=== PATIENT | female | born 1955 | race Caucasian/White ===

== ENCOUNTER 2017-01-09 12:47 | Emergency (ER) | payer OTHER, BC ==
[~2017-01-09] VITALS: Ht 160 cm; Wt 61.5 kg
[~2017-01-09 12:47] MED LIST: AMANTADINE100 MG PO; BACLOFEN20 MG PO; BENICAR40 MG PO; BOTOX100 UNITS IJ; CALTRATE PLUS1 EACH PO; CARDIZEM CD120 MG PO; CELEXA40 MG PO; CENTRUM SILVER1 EAC3 PO; CITALOPRAM HBR40 MG PO; CLEOCIN150 MG PO; COLACE100 MG PO; DETROL LA4 MG PO; DOCUSATE SODIU100 MG PO; ELIQUIS5 MG PO; FLONASE16 G1 BOTH NARES; FOLIC ACID1 MG PO; LATANOPROST2.5 ML BOTH EYES; LEVOCETIRIZINE D5 MG PO; METHOTREXATE2.5 MG PO; MIRAPEX0.5 MG PO; MOTRIN600 MG PO; PLEGRIDY125 MCG/0. SC; POLYETHYLENE GL17 GM PO; RECLAST5 MG/100 M IV; SENNA PLUS TAB1 EACH PO; SYNTHROID50 MCG PO; TECFIDERA240 MG PO; TIROSINT13 MCG PO; Vancocin Oral Solution PO; [UNRECOGNIZED DRUG - REMARK]
[2017-01-09 13:43] LABS: EOSINOPHIL (%) 0 % (0-5); HEMATOCRIT 33.6 % (36.0-46.0); IMMATURE GRANULOCYTE (%) 0.1 % (0.0-0.7); IMMATURE GRANULOCYTE COUNT 0.1 K/uL; LYMPHOCYTE COUNT 0.8 K/uL (1.0-2.8); MCH 30.2 PG (29.0-34.0); MCHC 32.1 G/DL (30.0-36.0); MCV 93.9 FL (83-99); MEAN PLAT.VOLUME 10.7 uM^3 (9.5-12.4); MONOCYTE (%) 7.2 % (3-12); MONOCYTE COUNT 0.8 K/uL (0-0.8); NEUTROPHIL COUNT 9.1 K/uL (1.8-6.4); PLATELET COUNT 164 K/uL (156-360); RBC DIS.WIDTH-CV 14.2 % (11.8-14.6); RBC DIS.WIDTH-SD 46.5 % (39-53); RED BLOOD COUNT 3.58 M/uL (3.80-5.20); WHITE BLOOD COUNT 10.7 K/uL (4.1-10.2)
[2017-01-09 13:52] LABS: CHLORIDE 107 mEq/L (99-109); POTASSIUM 3.9 mEq/L (3.7-5.4); SODIUM 140 mEq/L (136-147)
[2017-01-09 13:54] LABS: GLUCOSE 135 mg/dL (70-99)
[2017-01-09 13:55] LABS: ANION GAP 9 MEQ/L (2-14)
[2017-01-09 13:58] LABS: GFR ESTIMATE (CALCULATED) > 59 mL/min/
[2017-01-09 13:59] LABS: UREA NITROGEN (BUN) 21 mg/dL (9-23)
[2017-01-09 17:10] LABS: BILIRUBIN NEGATIVE; BLOOD NEGATIVE; COLOR YELLOW ((YELLOW)); GLUCOSE (STRIP) NEGATIVE; KETONES NEGATIVE; LEUKOCYTES NEGATIVE; NITRITE NEGATIVE; PROTEIN (STRIP) NEGATIVE; SPECIFIC GRAVITY 1.017 (1.000-1.030); UROBILINOGEN 0.2 MG/DL (0.2-1.0)
[2017-01-09 17:12] LABS: ADD MIUA? NO
[2017-01-09] MEDS ORDERED: KEFLEX500 MG PO (17:49)
[2017-01-09 18:07] VITALS: BP 127/52
== END 2017-01-09 18:11 | disposition home or self-care (01) ==
LOC: EME 12:47 → RME 12:47
PROVIDERS: Physician Assistant
DX: R50.9 Fever, unspecified (principal); L03.211 Cellulitis of face; I10 Essential (primary) hypertension; G35 Multiple sclerosis; E07.9 Disorder of thyroid, unspecified
CPT/HCPCS: 71010; 80048; 81003; 85025; 87040

== ENCOUNTER 2017-01-11 08:47 | Inpatient (IN) | payer OTHER, BC ==
[~2017-01-11] VITALS: Ht 160 cm; Wt 51.8 kg
[~2017-01-11 08:47] MED LIST changes: +KEFLEX500 MG PO
[2017-01-11 09:38] LABS: EOSINOPHIL (%) 0 % (0-5); HEMATOCRIT 35.4 % (36.0-46.0); IMMATURE GRANULOCYTE (%) 0.3 % (0.0-0.7); IMMATURE GRANULOCYTE COUNT 0.4 K/uL; LYMPHOCYTE COUNT 0.6 K/uL (1.0-2.8); MCH 30.1 PG (29.0-34.0); MCHC 32.2 G/DL (30.0-36.0); MCV 93.4 FL (83-99); MEAN PLAT.VOLUME 10.8 uM^3 (9.5-12.4); MONOCYTE (%) 5.7 % (3-12); MONOCYTE COUNT 0.9 K/uL (0-0.8); NEUTROPHIL (%) 89.9 % (45-76); NEUTROPHIL COUNT 13.7 K/uL (1.8-6.4); PLATELET COUNT 180 K/uL (156-360); RBC DIS.WIDTH-SD 45.7 % (39-53); RED BLOOD COUNT 3.79 M/uL (3.80-5.20); WHITE BLOOD COUNT 15.2 K/uL (4.1-10.2)
[2017-01-11 09:46] LABS: CHLORIDE 102 mEq/L (99-109); POTASSIUM 3.9 mEq/L (3.7-5.4); SODIUM 137 mEq/L (136-147)
[2017-01-11 09:48] LABS: GLUCOSE 119 mg/dL (70-99)
[2017-01-11 09:49] LABS: ANION GAP 12 MEQ/L (2-14)
[2017-01-11 09:52] LABS: GFR ESTIMATE (CALCULATED) > 59 mL/min/
[2017-01-11 09:53] LABS: UREA NITROGEN (BUN) 14 mg/dL (9-23)
[2017-01-11 12:41] LABS: ADD MIUA? YES; BILIRUBIN NEGATIVE; BLOOD NEGATIVE; COLOR YELLOW ((YELLOW)); GLUCOSE (STRIP) NEGATIVE; KETONES 20; LEUKOCYTES NEGATIVE; NITRITE NEGATIVE; PROTEIN (STRIP) 100; SPECIFIC GRAVITY 1.017 (1.000-1.030); UROBILINOGEN 0.2 MG/DL (0.2-1.0)
[2017-01-11 12:47] LABS: BACTERIA NONE SEEN /HPF; EPITHELIAL CELLS RARE /HPF; MUCUS NONE SEEN /LPF; RED BLOOD CELLS NONE SEEN /HPF (0-5); UCUL ADDED? NO; WHITE BLOOD CELLS 0-5 /HPF (0-5)
[2017-01-11] MEDS ORDERED: PLEGRIDY P125 MCG/0. SC (14:57)
[2017-01-11] MEDS ORDERED: BENICAR40 MG PO (14:58)
[2017-01-11] MEDS ORDERED: LO-DOSE ASPIRIN81 M2 PO (14:58)
[2017-01-11] MEDS ORDERED: TOLTERODINE TART4 MG PO (14:59)
[2017-01-11] MEDS ORDERED: BACLOFEN20 MG PO (15:00)
[2017-01-11] MEDS ORDERED: LEVO-T50 MCG PO (15:00)
[2017-01-11] MEDS ORDERED: CELEXA40 MG PO (15:01)
[2017-01-11] MEDS ORDERED: MIRAPEX0.5 MG PO (15:02)
[2017-01-11] MEDS ORDERED: CALTRATE PLUS1 EACH PO (15:03)
[2017-01-11] MEDS ORDERED: RECLAST5 MG/100 M IV (15:05)
[2017-01-11] MEDS ORDERED: CENTRUM SILVER1 EAC3 PO (15:05)
[2017-01-11 20:53] VITALS: BP 159/74
[2017-01-12] VITALS (7 sets, daily range): BP systolic 112–168; BP diastolic 60–84
[2017-01-13 07:27] LABS: ALKALINE PHOSPHATASE 58 IU/L (3-129); ANION GAP 11 MEQ/L (2-14); CHLORIDE 106 MEQ/L (99-109); GFR ESTIMATE (CALCULATED) > 59 mL/min/; GLUCOSE 102 mg/dL (70-99); POTASSIUM 3.2 MEQ/L (3.7-5.4); SAMPLE HEMOLYSIS CHECK 0; SAMPLE ICTERIC CHECK 0; SAMPLE LIPEMIA CHECK 0; SODIUM 139 MEQ/L (136-147); TOTAL BILIRUBIN 0.4 MG/DL (0.0-1.0); UREA NITROGEN (BUN) 8 mg/dL (9-23)
[2017-01-13 08:21] LABS: EOSINOPHIL (%) 0.1 % (0-5); IMMATURE GRANULOCYTE (%) 0.2 % (0.0-0.7); IMMATURE GRANULOCYTE COUNT 0.2 K/uL; LYMPHOCYTE COUNT 1.3 K/uL (1.0-2.8); MCH 29.6 PG (29.0-34.0); MCHC 31.9 G/DL (30.0-36.0); MCV 92.8 FL (83-99); MEAN PLAT.VOLUME 11.3 uM^3 (9.5-12.4); MONOCYTE (%) 9.5 % (3-12); MONOCYTE COUNT 0.9 K/uL (0-0.8); NEUTROPHIL (%) 76.2 % (45-76); NEUTROPHIL COUNT 7.4 K/uL (1.8-6.4); PLATELET COUNT 181 K/uL (156-360); RBC DIS.WIDTH-CV 14.1 % (11.8-14.6); RBC DIS.WIDTH-SD 46.4 % (39-53); RED BLOOD COUNT 3.34 M/uL (3.80-5.20)
[2017-01-13 08:24] VITALS: BP 145/70
[2017-01-13 08:25] LABS: WHITE BLOOD COUNT 9.7 K/uL (4.1-10.2)
[2017-01-13 11:02] LABS: MAGNESIUM 1.6 mg/dl (1.3-2.7)
[2017-01-13 16:25] VITALS: BP 150/68
[2017-01-13 23:05] VITALS: BP 138/72
[2017-01-14 07:21] LABS: ALKALINE PHOSPHATASE 51 IU/L (3-129); ANION GAP 10 MEQ/L (2-14); CHLORIDE 106 MEQ/L (99-109); GFR ESTIMATE (CALCULATED) > 59 mL/min/; GLUCOSE 100 mg/dL (70-99); POTASSIUM 3.3 MEQ/L (3.7-5.4); SAMPLE HEMOLYSIS CHECK 0; SAMPLE ICTERIC CHECK 0; SAMPLE LIPEMIA CHECK 0; SODIUM 138 MEQ/L (136-147); UREA NITROGEN (BUN) 7 mg/dL (9-23)
[2017-01-14 07:23] LABS: TOTAL BILIRUBIN 0.3 MG/DL (0.0-1.0)
[2017-01-14 07:39] LABS: EOSINOPHIL (%) 1.1 % (0-5); EOSINOPHIL COUNT 0.1 K/uL (0-0.3); HEMATOCRIT 29.1 % (36.0-46.0); LYMPHOCYTE COUNT 1.2 K/uL (1.0-2.8); MCH 29.8 PG (29.0-34.0); MCHC 32.6 G/DL (30.0-36.0); MCV 91.2 FL (83-99); MEAN PLAT.VOLUME 10.1 uM^3 (9.5-12.4); MONOCYTE (%) 10.7 % (3-12); MONOCYTE COUNT 0.7 K/uL (0-0.8); NEUTROPHIL (%) 69.6 % (45-76); NEUTROPHIL COUNT 4.5 K/uL (1.8-6.4); PLATELET COUNT 180 K/uL (156-360); RBC DIS.WIDTH-SD 47.2 % (39-53); RED BLOOD COUNT 3.19 M/uL (3.80-5.20)
[2017-01-14 07:41] LABS: WHITE BLOOD COUNT 6.4 K/uL (4.1-10.2)
[2017-01-14 08:15] VITALS: BP 144/82
[2017-01-14 16:22] VITALS: BP 132/70
[2017-01-14 23:57] VITALS: BP 140/58
[2017-01-15 07:31] LABS: GFR ESTIMATE (CALCULATED) > 59 mL/min/
[2017-01-15 07:45] VITALS: BP 164/74
[2017-01-15 11:11] LABS: ANION GAP 11 MEQ/L (2-14); CHLORIDE 105 MEQ/L (99-109); GLUCOSE 93 mg/dL (70-99); SODIUM 139 MEQ/L (136-147); UREA NITROGEN (BUN) 8 mg/dL (9-23)
[2017-01-15 11:12] LABS: POTASSIUM 4.3 MEQ/L (3.7-5.4)
[2017-01-15 16:06] LABS: C DIFF TOXIN NEGATIVE (NEGATIVE)
[2017-01-15 16:08] LABS: PROBE CHECK PASS; SPECIMEN PROCESSING CONTROL PASS
[2017-01-15 17:06] VITALS: BP 173/82
[2017-01-16 00:22] VITALS: BP 160/91
[2017-01-16 07:33] VITALS: BP 167/97
[2017-01-16 07:44] LABS: BASOPHIL COUNT 0.1 K/uL (0-0.1); EOSINOPHIL (%) 0.8 % (0-5); EOSINOPHIL COUNT 0.1 K/uL (0-0.3); HEMATOCRIT 34.4 % (36.0-46.0); IMMATURE GRANULOCYTE (%) 0.4 % (0.0-0.7); LYMPHOCYTE COUNT 1.3 K/uL (1.0-2.8); MCH 28.9 PG (29.0-34.0); MCV 90.3 FL (83-99); MEAN PLAT.VOLUME 9.7 uM^3 (9.5-12.4); MONOCYTE (%) 10.5 % (3-12); MONOCYTE COUNT 1.1 K/uL (0-0.8); NEUTROPHIL (%) 75.5 % (45-76); NEUTROPHIL COUNT 7.9 K/uL (1.8-6.4); RED BLOOD COUNT 3.81 M/uL (3.80-5.20)
[2017-01-16 07:51] LABS: ALKALINE PHOSPHATASE 58 IU/L (3-129); ANION GAP 12 MEQ/L (2-14); CHLORIDE 100 MEQ/L (99-109); GFR ESTIMATE (CALCULATED) > 59 mL/min/; GLUCOSE 115 mg/dL (70-99); POTASSIUM 3.6 MEQ/L (3.7-5.4); SAMPLE HEMOLYSIS CHECK 0; SAMPLE ICTERIC CHECK 0; SAMPLE LIPEMIA CHECK 0; SODIUM 137 MEQ/L (136-147); UREA NITROGEN (BUN) 7 mg/dL (9-23)
[2017-01-16 07:52] LABS: TOTAL BILIRUBIN 0.4 MG/DL (0.0-1.0)
[2017-01-16 07:54] LABS: PLATELET COUNT 282 K/uL (156-360); WHITE BLOOD COUNT 10.5 K/uL (4.1-10.2)
[2017-01-16 15:44] VITALS: BP 164/73
[2017-01-17 00:13] VITALS: BP 165/86
[2017-01-17 07:35] VITALS: BP 184/91
[2017-01-17 07:42] LABS: BASOPHIL COUNT 0.1 K/uL (0-0.1); EOSINOPHIL (%) 1.7 % (0-5); EOSINOPHIL COUNT 0.2 K/uL (0-0.3); HEMATOCRIT 32.7 % (36.0-46.0); IMMATURE GRANULOCYTE (%) 0.2 % (0.0-0.7); LYMPHOCYTE COUNT 1.7 K/uL (1.0-2.8); MCH 30.6 PG (29.0-34.0); MCHC 33.3 G/DL (30.0-36.0); MCV 91.9 FL (83-99); MEAN PLAT.VOLUME 9.9 uM^3 (9.5-12.4); MONOCYTE (%) 10.2 % (3-12); NEUTROPHIL (%) 70.2 % (45-76); NEUTROPHIL COUNT 7.1 K/uL (1.8-6.4); PLATELET COUNT 335 K/uL (156-360); RBC DIS.WIDTH-CV 13.9 % (11.8-14.6); RBC DIS.WIDTH-SD 46.7 % (39-53); RED BLOOD COUNT 3.56 M/uL (3.80-5.20); WHITE BLOOD COUNT 10.1 K/uL (4.1-10.2)
[2017-01-17 08:00] LABS: ANION GAP 10 MEQ/L (2-14); CHLORIDE 101 MEQ/L (99-109); GFR ESTIMATE (CALCULATED) > 59 mL/min/; GLUCOSE 109 mg/dL (70-99); POTASSIUM 3.8 MEQ/L (3.7-5.4); SAMPLE HEMOLYSIS CHECK 0; SAMPLE ICTERIC CHECK 0; SAMPLE LIPEMIA CHECK 0; SODIUM 142 MEQ/L (136-147); UREA NITROGEN (BUN) 11 mg/dL (9-23)
[2017-01-17 15:15] VITALS: BP 124/58
[2017-01-17 22:51] VITALS: BP 139/65
[2017-01-18 15:12] VITALS: BP 146/66
[2017-01-18 16:36] LABS: ADD MIUA? YES; BILIRUBIN NEGATIVE; BLOOD NEGATIVE; COLOR YELLOW ((YELLOW)); GLUCOSE (STRIP) NEGATIVE; KETONES NEGATIVE; LEUKOCYTES NEGATIVE; NITRITE NEGATIVE; PROTEIN (STRIP) NEGATIVE; SPECIFIC GRAVITY 1.016 (1.000-1.030); UROBILINOGEN 0.2 MG/DL (0.2-1.0)
[2017-01-18 16:54] LABS: BACTERIA NONE SEEN /HPF; EPITHELIAL CELLS NONE SEEN /HPF; MUCUS TRACE /LPF; RED BLOOD CELLS 0-5 /HPF (0-5); WHITE BLOOD CELLS 0-5 /HPF (0-5)
[2017-01-18 23:10] VITALS: BP 124/48
[2017-01-19 08:21] VITALS: BP 146/84
[2017-01-19] MEDS ORDERED: DOXYCYCLINE HY100 M3 PO (09:37)
[2017-01-19] MEDS ORDERED: AMLODIPINE BESYL5 MG PO (09:37)
[2017-01-19 16:21] VITALS: BP 121/55
[2017-01-20 00:05] VITALS: BP 130/62
[2017-01-20 10:19] VITALS: BP 124/74
== END 2017-01-20 15:08 | DRG 872 ==
LOC: EME 08:47 → EDOF 11:39 → 5EAST 11:39
PROVIDERS: Emergency Medicine; Hospitalist; Internal Medicine
PROC: 09C Ear, Nose, Sinus, Extirpation (ICD-10-PCS; principal; 2017-01-13)
PROC: 09C Ear, Nose, Sinus, Extirpation (ICD-10-PCS; 2017-01-15)
DX: A41.02 Sepsis due to Methicillin resistant Staphylococcus aureus (principal); L03.211 Cellulitis of face; M79.81 Nontraumatic hematoma of soft tissue; R04.0 Epistaxis; E87.6 Hypokalemia; I48.0 Paroxysmal atrial fibrillation; I10 Essential (primary) hypertension; G35 Multiple sclerosis; E03.9 Hypothyroidism, unspecified; N31.9 Neuromuscular dysfunction of bladder, unspecified; Z88.0 Allergy status to penicillin; Z88.2 Allergy status to sulfonamides
CPT/HCPCS: 70486; 71010; 80048; 80053; 80069; 80202; 81003; 82565; 83605; 83735; 85025; 87040; 87070; 87075; 87077; 87147; 87186; 87205; 87493; 87801; 97530 GO; 97530 GP; 99281; 99285; J1170; J1650; J2270; J2405; J3370; J3475; J3480; J7030; S0028

== ENCOUNTER 2017-02-04 10:08 | Day surgery (SDC) | payer OTHER, BC ==
[~2017-02-04] VITALS: Ht 160 cm; Wt 59.0 kg
[~2017-02-04 10:08] MED LIST changes: +AMLODIPINE BESYL5 MG PO; +DOXYCYCLINE HY100 M3 PO; +LEVO-T50 MCG PO; +LO-DOSE ASPIRIN81 M2 PO; +PLEGRIDY P125 MCG/0. SC; +TOLTERODINE TART4 MG PO
[2017-02-04 10:57] VITALS: BP 149/78
[2017-02-04 12:05] LABS: METH RESISTANT S AUREUS PCR NEGATIVE (NEGATIVE)
[2017-02-04 12:39] LABS: PROBE CHECK PASS; SPECIMEN PROCESSING CONTROL PASS
[2017-02-04 14:25] VITALS: BP 143/65
[2017-02-04 15:39] VITALS: BP 132/64
== END 2017-02-04 15:45 | disposition home or self-care (01) ==
LOC: SDC 10:08
PROVIDERS: Otolaryngology
PROC: 099M0ZZ Drainage of Nasal Septum, Open Approach (ICD-10-PCS; principal; 2017-02-04)
DX: M79.81 Nontraumatic hematoma of soft tissue (principal); Z86.14 Personal history of Methicillin resistant Staphylococcus aureus infection; G35 Multiple sclerosis; I48.91 Unspecified atrial fibrillation; I10 Essential (primary) hypertension; E05.90 Thyrotoxicosis, unspecified without thyrotoxic crisis or storm; J30.9 Allergic rhinitis, unspecified; Z82.49 Family history of ischemic heart disease and other diseases of the circulatory system; Z81.1 Family history of alcohol abuse and dependence; Z82.5 Family history of asthma and other chronic lower respiratory diseases; Z80.9 Family history of malignant neoplasm, unspecified
CPT/HCPCS: 87641; J1100; J2250; J2405; J3010

== ENCOUNTER 2017-03-18 11:30 | Emergency (ER) | payer OTHER, BC ==
[~2017-03-18] VITALS: Ht 160 cm; Wt 59.0 kg
[2017-03-18 12:44] LABS: HEMATOCRIT 34.3 % (36.0-46.0); MCH 28.9 PG (29.0-34.0); MCHC 31.5 G/DL (30.0-36.0); MCV 91.7 FL (83-99); MEAN PLAT.VOLUME 10.9 uM^3 (9.5-12.4); PLATELET COUNT 159 K/uL (156-360); RBC DIS.WIDTH-CV 13.6 % (11.8-14.6); RBC DIS.WIDTH-SD 45.8 % (39-53); RED BLOOD COUNT 3.74 M/uL (3.80-5.20); WHITE BLOOD COUNT 3.4 K/uL (4.1-10.2)
[2017-03-18 12:58] LABS: CHLORIDE 104 mEq/L (99-109); POTASSIUM 3.5 mEq/L (3.7-5.4); SODIUM 141 mEq/L (136-147)
[2017-03-18 12:59] LABS: GLUCOSE 98 mg/dL (70-99)
[2017-03-18 13:01] LABS: ANION GAP 8 MEQ/L (2-14)
[2017-03-18 13:03] LABS: GFR ESTIMATE (CALCULATED) > 59 mL/min/
[2017-03-18 13:04] LABS: UREA NITROGEN (BUN) 17 mg/dL (9-23)
[2017-03-18 13:57] LABS: ROTAVIRUS ND
[2017-03-18 14:10] LABS: INTERNAL CONTROL VALID? YES
[2017-03-18 14:50] LABS: C DIFF TOXIN NEGATIVE (NEGATIVE)
[2017-03-18 14:52] LABS: PROBE CHECK PASS; SPECIMEN PROCESSING CONTROL PASS
[2017-03-18 15:42] LABS: ADD MIUA? YES; BILIRUBIN NEGATIVE; BLOOD NEGATIVE; COLOR YELLOW ((YELLOW)); GLUCOSE (STRIP) NEGATIVE; KETONES NEGATIVE; LEUKOCYTES SMALL; NITRITE NEGATIVE; PROTEIN (STRIP) NEGATIVE; SPECIFIC GRAVITY 1.011 (1.000-1.030); UROBILINOGEN 0.2 MG/DL (0.2-1.0)
[2017-03-18 16:22] VITALS: BP 139/60
[2017-03-18 16:27] LABS: RED BLOOD CELLS 0-5 /HPF (0-5)
[2017-03-18 16:28] LABS: EPITHELIAL CELLS 2+ /HPF; MUCUS NONE SEEN /LPF; UCUL ADDED? NO
[2017-03-18 17:12] LABS: BACTERIA 1+ /HPF
== END 2017-03-18 16:23 | disposition home or self-care (01) ==
LOC: EME 11:30 → RME 11:30
PROVIDERS: Nurse Practitioner Family
DX: R19.7 Diarrhea, unspecified (principal); R19.5 Other fecal abnormalities; E03.9 Hypothyroidism, unspecified; Z86.14 Personal history of Methicillin resistant Staphylococcus aureus infection; Z86.19 Personal history of other infectious and parasitic diseases; Z88.2 Allergy status to sulfonamides; Z88.0 Allergy status to penicillin
CPT/HCPCS: 74000; 80048; 81003; 83630; 85027; 87425; 87493; 99281; 99283

== ENCOUNTER 2017-04-15 21:41 | Emergency (ER) | payer OTHER, BC ==
[~2017-04-15] VITALS: Ht 160 cm; Wt 61.9 kg
[2017-04-15 23:47] VITALS: BP 166/70
== END 2017-04-15 23:48 | disposition home or self-care (01) ==
LOC: EME 21:41
PROC: 3E0234Z Introduction of Serum, Toxoid and Vaccine into Muscle, Percutaneous Approach (ICD-10-PCS; principal; 2017-04-15)
DX: S00.93XA Contusion of unspecified part of head, initial encounter (principal); S00.01XA Abrasion of scalp, initial encounter; W18.30XA Fall on same level, unspecified, initial encounter; Z88.0 Allergy status to penicillin; Z88.2 Allergy status to sulfonamides; Z23 Encounter for immunization
CPT/HCPCS: 70450; 99281; 99284

== ENCOUNTER → 2017-05-31 | Outpatient (CLI) | payer OTHER, BC ==
[~2017-05-31] VITALS: Ht 160 cm; Wt 59.1 kg
[2017-05-31 09:52] VITALS: BP 172/76
== END | disposition home or self-care (01) ==
LOC: IVINF 05-30 15:00
DX: M81.0 Age-related osteoporosis without current pathological fracture (principal)
CPT/HCPCS: 96365; J3489

== ENCOUNTER 2017-09-14 03:07 | Inpatient (IN) | payer OTHER, BC ==
[~2017-09-14] VITALS: Ht 160 cm; Wt 63.4 kg
[2017-09-14 04:37] LABS: HEMATOCRIT 36.4 % (36.0-46.0); MCH 30.1 PG (29.0-34.0); MCHC 32.7 G/DL (30.0-36.0); MCV 91.9 FL (83-99); MEAN PLAT.VOLUME 10.8 uM^3 (9.5-12.4); PLATELET COUNT 161 K/uL (156-360); RBC DIS.WIDTH-CV 12.6 % (11.8-14.6); RBC DIS.WIDTH-SD 42.5 % (39-53); RED BLOOD COUNT 3.96 M/uL (3.80-5.20); WHITE BLOOD COUNT 7.4 K/uL (4.1-10.2)
[2017-09-14 04:44] LABS: CHLORIDE 105 mEq/L (99-109); POTASSIUM 3.6 mEq/L (3.7-5.4); SODIUM 142 mEq/L (136-147)
[2017-09-14 04:45] LABS: GLUCOSE 106 mg/dL (70-99)
[2017-09-14 04:47] LABS: ANION GAP 13 MEQ/L (2-14)
[2017-09-14 04:49] LABS: GFR ESTIMATE (CALCULATED) > 59 mL/min/
[2017-09-14 04:50] LABS: UREA NITROGEN (BUN) 23 mg/dL (9-23)
[2017-09-14 04:52] LABS: CREATINE KINASE 227 IU/L (1-294); TOTAL CK 227 IU/L (1-294)
[2017-09-14 04:58] LABS: CK-MB 3.7 ng/mL (0.0-4.9)
[2017-09-14 06:42] VITALS: BP 168/75
[2017-09-14 07:26] VITALS: BP 141/72
[2017-09-14 09:59] LABS: ADD MIUA? NO; BILIRUBIN NEGATIVE; BLOOD NEGATIVE; COLOR YELLOW ((YELLOW)); GLUCOSE (STRIP) NEGATIVE; KETONES NEGATIVE; LEUKOCYTES NEGATIVE; NITRITE NEGATIVE; PROTEIN (STRIP) NEGATIVE; SPECIFIC GRAVITY 1.018 (1.000-1.030); UCUL ADDED? NO; UROBILINOGEN 0.2 MG/DL (0.2-1.0)
[2017-09-14 12:00] VITALS: BP 122/85
[2017-09-14 16:06] VITALS: BP 136/71
[2017-09-14] MEDS ORDERED: BENICAR20 MG PO (16:50)
[2017-09-14] MEDS ORDERED: REMERON15 M2 PO (16:52)
[2017-09-14] MEDS ORDERED: WELLBUTRIN SR200 MG PO (16:52)
[2017-09-14] MEDS ORDERED: BACLOFEN20 MG PO (16:52)
[2017-09-14 19:22] VITALS: BP 131/60
[2017-09-14 23:20] VITALS: BP 145/63
[2017-09-15 04:50] VITALS: BP 137/65
[2017-09-15 06:07] LABS: HEMATOCRIT 32.9 % (36.0-46.0); MCH 30.2 PG (29.0-34.0); MCHC 31.9 G/DL (30.0-36.0); MCV 94.5 FL (83-99); MEAN PLAT.VOLUME 11.3 uM^3 (9.5-12.4); PLATELET COUNT 145 K/uL (156-360); RBC DIS.WIDTH-SD 45.1 % (39-53); RED BLOOD COUNT 3.48 M/uL (3.80-5.20); WHITE BLOOD COUNT 4.6 K/uL (4.1-10.2)
[2017-09-15 06:29] LABS: ANION GAP 8 MEQ/L (2-14); CHLORIDE 105 MEQ/L (99-109); GFR ESTIMATE (CALCULATED) > 59 mL/min/; GLUCOSE 90 mg/dL (70-99); POTASSIUM 3.8 MEQ/L (3.7-5.4); SAMPLE HEMOLYSIS CHECK 0; SAMPLE ICTERIC CHECK 0; SAMPLE LIPEMIA CHECK 0; SODIUM 139 MEQ/L (136-147); UREA NITROGEN (BUN) 19 mg/dL (9-23)
[2017-09-15 08:11] VITALS: BP 137/59
[2017-09-15] MEDS ORDERED: DILAUDID 00.5 MG/0.5 IV (13:50)
[2017-09-15] MEDS ORDERED: ENDOCET 5-3251 EACH PO (13:50)
[2017-09-15] MEDS ORDERED: HEPARIN SO5000 UNIT4 SC (13:51)
[2017-09-15] MEDS ORDERED: ONDANSETRON4 MG/2 ML IV (13:51)
== END 2017-09-15 15:16 | disposition short-term general hospital (02) | DRG 563 ==
LOC: EME 03:07 → 3EAST 05:08 → EDOF 05:08 → ENRESERV 05:11 → 3EAST 06:07
PROVIDERS: Emergency Medicine; Nurse Practitioner Family
DX: S42.201A Unspecified fracture of upper end of right humerus, initial encounter for closed fracture (principal); G35 Multiple sclerosis; E87.6 Hypokalemia; R53.1 Weakness; W19.XXXA Unspecified fall, initial encounter; E03.9 Hypothyroidism, unspecified; I10 Essential (primary) hypertension; I48.0 Paroxysmal atrial fibrillation; F32.9 Major depressive disorder, single episode, unspecified; Z90.49 Acquired absence of other specified parts of digestive tract; Z79.899 Other long term (current) drug therapy; Z79.82 Long term (current) use of aspirin; Z72.0 Tobacco use; Z80.9 Family history of malignant neoplasm, unspecified
CPT/HCPCS: 73030; 73070; 73080; 80048; 81003; 82550; 82553; 83605; 85027; 87040; 90686; 99281; 99285; J1170; J1644; J2270; J2405; J3010; J7030

== ENCOUNTER 2017-12-07 12:44 | Emergency (ER) | payer OTHER ==
[~2017-12-07] VITALS: Ht 160 cm; Wt 62.3 kg
[~2017-12-07 12:44] MED LIST changes: +BENICAR20 MG PO; +DILAUDID 00.5 MG/0.5 IV; +ENDOCET 5-3251 EACH PO; +HEPARIN SO5000 UNIT4 SC; +ONDANSETRON4 MG/2 ML IV; +REMERON15 M2 PO; +WELLBUTRIN SR200 MG PO
[2017-12-07] MEDS ORDERED: FLEXERIL10 MG PO (16:15)
[2017-12-07 16:37] VITALS: BP 148/78
== END 2017-12-07 16:37 | disposition home or self-care (01) ==
LOC: EME 12:44
PROC: 0HQ1XZZ Repair Face Skin, External Approach (ICD-10-PCS; principal; 2017-12-07)
DX: S01.81XA Laceration without foreign body of other part of head, initial encounter (principal); S01.111A Laceration without foreign body of right eyelid and periocular area, initial encounter; W18.30XA Fall on same level, unspecified, initial encounter; Y92.009 Unspecified place in unspecified non-institutional (private) residence as the place of occurrence of the external cause; M25.512 Pain in left shoulder; E03.9 Hypothyroidism, unspecified; F32.9 Major depressive disorder, single episode, unspecified; Z88.2 Allergy status to sulfonamides; Z88.0 Allergy status to penicillin; G35 Multiple sclerosis; Z96.611 Presence of right artificial shoulder joint; R26.2 Difficulty in walking, not elsewhere classified
CPT/HCPCS: 70450; 99281; 99284; G8978 GP CM; G8979 GP CL; G8987 GO CM; G8988 GO CK